=== PATIENT | female | born 1955 | race Caucasian/White ===

== ENCOUNTER → 2018-05-25 | Outpatient (CLI) | payer OTHER ==
[~2018-05-25] MED LIST: GLUCOPHAGE1000 MG PO; LEVEMIR; LEVEMIR SUBQ; NOVOLOG; NOVOLOG100 UNIT/1 SUBQ
== END ==
LOC: M.RAD 16:29
DX: M25.512 Pain in left shoulder (principal); E11.9 Type 2 diabetes mellitus without complications; Z79.4 Long term (current) use of insulin

== ENCOUNTER → 2018-09-21 | Outpatient (CLI) | payer BC, OTHER | LOC: M.MRI 15:05 | DX: S46.812A Strain of other muscles, fascia and tendons at shoulder and upper arm level, left arm, initial encounter (principal); M75.02 Adhesive capsulitis of left shoulder; E11.9 Type 2 diabetes mellitus without complications; X58.XXXA Exposure to other specified factors, initial encounter; Y93.89 Activity, other specified; Y92.89 Other specified places as the place of occurrence of the external cause; Y99.8 Other external cause status; Z79.4 Long term (current) use of insulin ==

== ENCOUNTER → 2019-03-09 | Outpatient (CLI) | payer BC | LOC: M.RAD 13:07 | DX: M81.0 Age-related osteoporosis without current pathological fracture (principal); E11.9 Type 2 diabetes mellitus without complications; Z79.4 Long term (current) use of insulin; Z78.0 Asymptomatic menopausal state ==

== ENCOUNTER 2020-10-02 14:59 | Emergency (ER) | payer BC ==
[~2020-10-02] VITALS: Ht 157.5 cm; Wt 60.8 kg
[2020-10-02] MEDS ORDERED: TRULICITY0.75 MG/0. (15:13)
[2020-10-02] MEDS ORDERED: ZPAK PO (15:57)
[2020-10-02] MEDS ORDERED: PREDNISONE 20 M20 M1 PO (15:57)
[2020-10-02] MEDS ORDERED: ZOFRAN ODT4 MG SUBLING (15:57)
[2020-10-02] MEDS ORDERED: DIFLUCAN150 MG PO (16:48)
[2020-10-02 16:50] VITALS: BP 138/75
== END 2020-10-02 16:51 | disposition home or self-care (01) ==
LOC: M.ERS 14:59
DX: U07.1 COVID-19 (principal); Z79.899 Other long term (current) drug therapy

== ENCOUNTER → 2020-12-06 | Outpatient (CLI) | payer BC ==
[~2020-12-06] MED LIST changes: +DIFLUCAN150 MG PO; +PREDNISONE 20 M20 M1 PO; +TRULICITY0.75 MG/0.; +ZOFRAN ODT4 MG SUBLING; +ZPAK PO
== END ==
LOC: M.RAD 15:09
PROVIDERS: ATTEND Registered Nurse Diabetes Educator
DX: M16.12 Unilateral primary osteoarthritis, left hip (principal); M51.36 Other intervertebral disc degeneration, lumbar region; M54.42 Lumbago with sciatica, left side; M41.86 Other forms of scoliosis, lumbar region

== ENCOUNTER → 2021-07-17 | Outpatient (CLI) | payer OTHER | LOC: M.RAD 07-16 14:20 | PROVIDERS: ATTEND Registered Nurse Diabetes Educator | DX: Z12.31 Encounter for screening mammogram for malignant neoplasm of breast (principal); M85.88 Other specified disorders of bone density and structure, other site; Z78.0 Asymptomatic menopausal state ==

== ENCOUNTER → 2021-07-24 | Outpatient (CLI) | payer OTHER | LOC: M.RAD 11:24 | PROVIDERS: ATTEND Registered Nurse Diabetes Educator | DX: R92.1 Mammographic calcification found on diagnostic imaging of breast (principal) ==